=== PATIENT | female | born 1995 | race Caucasian/White ===

== ENCOUNTER → 2024-05-11 10:43 | Outpatient (REF) | payer BC, SELFPAY | LOC: MRI 3T 10:43 | PROVIDERS: ATTENDING PHYSICIAN Nurse Practitioner Family; FAMILY PHYSICIAN Nurse Practitioner Family | DX: G43.009 Migraine without aura, not intractable, without status migrainosus (principal) | CPT/HCPCS: 70551 ==

== ENCOUNTER 2024-05-31 19:47 | Emergency (ER) | payer BC, SELFPAY ==
[2024-05-31 19:51] VITALS: BP 131/79
--- NOTE | 2024-05-31 20:19 | ED.SKININJ ---
HPI-Injury
General
Chief Complaint: Bite
Source: patient
Time Seen by Provider: 05/31/24 19:54
History of Present Illness-Injury
Initial Injury comments:
28-year-old female presents to the emergency room complaining of suffering a bite to her left foot. Patient states her dog bit her. She suffered a laceration to the foot. No other injuries. The dog is the patient's own dog. Animal is up-to-date
on its immunizations including rabies. Patient does not know when her last tetanus shot was.
Past History
Past History
ED Past Medical History: Psychiatric and Other (Migraines)
Social History
Tobacco: Non-smoker
Personal: Single
Phy Exam
Physical Exam
Physical Exam:
General: Awake, Alert, Oriented X3. No acute distress.
Vitals: unremarkable
Neuro: Nonfocal
Skin: Warm, dry, no rash
Extremities: pulses equal b/l, no edema. 5 mm laceration/puncture wound noted just proximal to the third left toe. Wound does not penetrate beyond the subcutaneous tissue. Range of motion of the toes intact.
Course
Orders/Labs/Results
Orders:
Orders
05/31/24 20:18
Amoxicillin 875 mg/Clav 125 mg [Augmentin 875 mg/125 mg] 1 tablet PO NOW STA
Ibuprofen [Motrin] 400 mg PO NOW STA
05/31/24 20:22
Tetanus/Diphth/Acelpertussis [Adacel] 0.5 ml IM .ONCE ONE
Vital Signs
Initial and Last Documented VS:
Initial Vital Signs
Temp Pulse Resp BP Pulse Ox
98 F 93 16 131/79 99
05/31/24 19:51 05/31/24 19:51 05/31/24 19:51 05/31/24 19:51 05/31/24 19:51
Last Documented Vital Signs
Temp Pulse Resp BP Pulse Ox
98 F 93 16 131/79 99
05/31/24 19:51 05/31/24 19:51 05/31/24 19:51 05/31/24 19:51 05/31/24 19:51
MDM/Problems Addressed
Differential Diagnosis Includes:
Dog bite, tendon injury
MDM/Problems Addressed:
No evidence of tendon injury on exam. Patient does not require rabies treatment because her dog is immunized. In addition the patient will be keeping the dog and so it is observable. Wound is not suitable for suturing because it is an animal bite
on the foot. Will allow the wound to heal by secondary intention. Will cover with Augmentin to prevent wound infection.
*Pulse Oximetry
Patient hypoxic: no
*Critical Care Note
Total Time (30-74mins, 75-104mins- exclusive of procedures): Not Applicable
ED Attending Note
-
Portions of this chart may have been created with voice recognition software.� Occasional wrong word or��sound alike� substitutions may have occurred due to the inherent limitations of voice recognition software.
Discharge Plan
Departure
Patient Disposition: Home (Routine Discharge)
Date of Disposition: 05/31/24
Time of Disposition: 20:19
Patient with high blood pressure during this ER visit?: No
Condition: Good
Discharge Problem:
Dog bite of left foot
Instructions: Animal Bites (DC)
Prescriptions:
New
amoxicillin-pot clavulanate 875-125 mg tablet
1 tab PO BID Qty: 10 0RF
Activity Restrictions/Additional Instructions:
Apply antibiotic ointment to the wound twice a day for the next few days. Take antibiotic twice a day for 5 days
Interventions
Interventions:
*Risk Screen - Suicide Last Done: 05/31/24 19:51
*General Assessment Last Done: 05/31/24 21:20
*Neglect/Abuse Screening Last Done: 05/31/24 19:51
ED- Fall Risk Assessment Last Done: 05/31/24 21:20
*ED COVID-19 Vaccine History Last Done: 05/31/24 21:20
*Nursing Disposition Last Done: 05/31/24 21:20
ED-Skin Assessment Last Done: 05/31/24 21:17
Discharge Date and Time
Discharge Date/Time: 05/31/24 21:00
Print Language: MALDIVIAN
[2024-05-31] MEDS: ADACEL 0.5 ML IM (20:31)
[2024-05-31] MEDS: AUGMENTIN 875 MG/125 MG 1 TABLET PO (20:32)
[2024-05-31] MEDS: MOTRIN 400 MG PO (20:32)
== END 2024-05-31 21:00 | disposition home or self-care (01) ==
LOC: EMR 19:47
PROVIDERS: EMERGENCY PHYSICIAN Emergency Medicine; FAMILY PHYSICIAN Nurse Practitioner Family
DX: S91.352A Open bite, left foot, initial encounter (principal); W54.0XXA Bitten by dog, initial encounter
CPT/HCPCS: 99282; 90471; 90715